=== PATIENT | male | born 1995 | race Caucasian/White ===

== ENCOUNTER → 2017-01-31 | Emergency (ER) | payer OTHER ==
[~2017-01-31] VITALS: Ht 180.3 cm; Wt 84.8 kg
[~2017-01-31] MED LIST: BUPIVACAINE 0.5 % PF 150 MG/30 ML VIAL ONE
--- NOTE | 2017-01-31 02:48 | NUR ---
DR. COSTELLO AT BEDSIDE FOR EVAL
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
--- NOTE | 2017-01-31 03:07 | NUR ---
SPIRAL [employer]ER AT BEDSIDE
--- NOTE | 2017-01-31 04:00 | NUR ---
DR. COSTELLO AT BEDSIDE FOR HEMATOMA BLOCK.
--- NOTE | 2017-01-31 04:18 | NUR ---
RADIOLOGY AT BEDSIDE FOR RIGHT HAND XRAY
--- NOTE | 2017-01-31 04:44 | NUR ---
D/C PAPERWORK GIVEN WITH XRAY CD. POLICE ESCO[employer] OUT OF BUILDING
[2017-01-31 04:45] VITALS: BP 116/74
== END | disposition home or self-care (01) ==
LOC: ER 02:35
DX: S62.336A Displaced fracture of neck of fifth metacarpal bone, right hand, initial encounter for closed fracture (principal); F12.10 Cannabis abuse, uncomplicated; W22.01XA Walked into wall, initial encounter; Y93.89 Activity, other specified; Y92.89 Other specified places as the place of occurrence of the external cause; Y99.8 Other external cause status
CPT/HCPCS: 26742; 73130 ×2; 99284; A4606; A6403; J3490; Z7610